=== PATIENT | female | born 1945 | race Caucasian/White ===

== ENCOUNTER 2019-12-16 09:34 | Inpatient (IN) | payer OTHER, MEDICARE ==
[2019-12-16] MEDS ORDERED: ONDANSETRON 4 MG/2 ML VIAL ONE (09:57)
[2019-12-16] MEDS ORDERED: MORPHINE 4 MG/ML SYR ONE ×4 (09:57→16:48)
[2019-12-16 10:20] LABS: Absolute Lymphocytes (CBC) 0.9 K/uL (0.7-4.9); Basophils % 1.1 % (0-1.3); Hematocrit 40.6 % (36.0-45.0); Lymphocytes % 13.6 % (15.3-44.8); MPV 8.1 fL (7.6-11.3); RBC Red Blood Cell Count 4.19 M/uL (3.86-4.86)
[2019-12-16 10:21] LABS: Protime INR 1.85
[2019-12-16 10:31] LABS: ALT/SGPT 22 U/L (12-78); AST/SGOT 19 U/L (15-37); Albumin 3.4 g/dL (3.4-5.0); Alkaline Phosphatase 59 U/L (45-117); BUN Blood Urea Nitrogen 22 mg/dL (7-18); Bicarbonate 26 mmol/L (21-32); Bilirubin Direct 0.2 mg/dL (0-0.2); Bilirubin Total 0.4 mg/dL (0.2-1.0); Glucose Level 135 mg/dL (74-106); NT PRO-BNP 453 pg/mL (<125); Potassium 4.1 mmol/L (3.5-5.1); Protein, Total 6.7 g/dL (6.4-8.2); Sodium Level 144 mmol/L (136-145); Troponin (Emerg Dept Use Only) < 0.02 ng/mL (0.0-0.045)
--- NOTE | 2019-12-16 10:43 | RAD REPORT ---
EXAM DESCRIPTION: CT - Head C Spine Mpr Wo Con - 12/16/2019 10:20 am CLINICAL HISTORY: Head and neck injury status post fall. Head and neck pain COMPARISON: None. TECHNIQUE: Computed axial tomography of the head and cervical spine was obtained. Sagittal and coronal reconstruction was performed. All CT scans are performed using dose optimization technique as appropriate and may include automated exposure control or mA/KV adjustment according to patient size. FINDINGS: An intracranial bleed is not seen. Mild low-density areas within periventricular, deep and subcortical white matter likely ischemic arnold ges secondary to small vessel disease The ventricles are normal in caliber. An extra-axial fluid collection is not noted.Fluid within the v isualized sinuses and mastoids is not seen A cervical fracture is not visualized. No dislocation is noted. IMPRESSION: No acute intracranial abnormality is seen. A cervical fracture is not visualized. If the patient continues to have symptoms to suggest intracra nial /spinal cord pathology then MRI would be recommended
--- NOTE | 2019-12-16 10:52 | RAD REPORT ---
EXAM DESCRIPTION: Rian Car Left12/16/2019 10:43 am CLINICAL HISTORY: Left leg pain status post injury FINDINGS: Comminuted markedly displaced fractures involve of the proximal left fibula and proximal t o mid tibia with some angulation present at fracture site Lucency within the lateral tibial plateau is equivocal for an additional fracture
--- NOTE | 2019-12-16 11:18 | ER ---
Nurse's Notes [facility] Name: Catina Albright Age: 74 yrs Sex: Female : 1945 Arrival Date: 12/16/2019 Time: 09:37 Bed 4 Private MD: Diagnosis: Fall due to bumping against object;Displaced comminuted fracture of shaft of left tibia;Comminuted fracture of shaft of fibula;Atrial fibrillation and flutter;Displaced fracture of lateral condyle of left tibia-plateau Presentation: 12/15 09:38 Chief complaint: EMS states: Pt slipped and fell in shower, denies hitting head or LOC, ph does take blood thinners, obvious deformity to L lower leg. Coronavirus screen: Patient denies a cough. Patient denies shortness of breath or difficulty breathing. Patient denies measured and/or subjective temperature greater than 100.4F prior to today's visit. Patient denies travel on a cruise ship or to a country the [facility] currently lists as an affected area. Patient denies contact with known and/or suspected case of COVID-19. Proceed with normal triage. Ebola Screen: No symptoms or risks identified at this time. Initial Sepsis Screen: Does the patient meet any 2 criteria? No. Patient's initial sepsis screen is negative. Does the patient have a suspected source of infection? No. Patient's initial sepsis screen is negative. Risk Assessment: Do you want to hurt yourself or someone else? Patient reports no desire to harm self or others. Onset of symptoms was December 16, 2019. 09:38 Method Of Arrival: EMS: [facility] ph 09:38 Acuity: MADHAV 3 ph Historical: - Allergies: 09:41 codeine sulfate; ph 09:41 Dilaudid; ph 09:41 ambien; ph - Home Meds: 09:41 Eliquis oral oral [Active]; ph - PMHx: 09:43 Atrial Fib; em - PSHx: 09:43 Cholecystectomy; Appendectomy; Tonsillectomy; Hysterectomy; R hip surgery; em - Immunization history:: Adult Immunizations unknown, Adult Immunizations up to date. - Social history:: Smoking status: Patient denies any tobacco usage or history of. Smoking status: Patient denies any tobacco usage or history of. - Immunization history: Last tetanus immunization: - up to date. - Family history:: not pertinent. Screenin:40 Abuse screen: Denies threats or abuse. Denies injuries from another. Nutritional ph screening: No deficits noted. Tuberculosis screening: No symptoms or risk factors identified. Fall Risk None identified. Primary Survey: 09:42 NO uncontrolled hemorrhage observed. A: The patient is alert. Airway: patent, No ph supplemental oxygen in use on arrival. Oral cavity: clear, Trachea midline. Breathing/Chest: Respiratory pattern: regular, Respiratory effort: spontaneous, unlabored, Chest inspection: symmetrical rise and fall of the chest. Circulation: Skin color: pink, Skin temperature: warm, dry. Disability Alert. Exposure/Environment: There is no evidence of uncontrolled external bleeding. Obvious injury(ies) are noted at this time: obvious deformity to left lower leg A warming method has been applied: A warm blanket has been provided to the patient. Assessment: 09:38 General: Appears in no apparent distress. comfortable, Behavior is calm, cooperative, em appropriate for age, Denies fever. Pain: Complains of pain in left leg and left marina Pain currently is 4 out of 10 on a pain scale. Neuro: Level of Consciousness is awake, alert, obeys commands, Oriented to person, place, time, situation, Appropriate for age. Cardiovascular: Capillary refill < 3 seconds Patient's skin is warm and dry. Pulses are all present. Respiratory: Airway is patent Respiratory effort is even, unlabored, Respiratory pattern is regular, symmetrical. GI: Abdomen is flat. Derm: Skin is intact, is healthy with good turgor, Skin is pink, warm \T\ dry. Musculoskeletal: Capillary refill < 3 seconds, Bony deformity noted of left marina Swelling present in left marina. 09:45 Reassessment: Dr. Fox at bedside, cleared pt off backboard, no c-collar applied at em this time. 10:30 Reassessment: Patient appears in no apparent distress at this time. Patient and/or em family updated on plan of care and expected duration. Pain level reassessed. Patient is alert, oriented x 3, equal unlabored respirations, skin warm/dry/pink. 11:45 Reassessment: Patient appears in no apparent distress at this time. Patient and/or em family updated on plan of care and expected duration. Pain level reassessed. Patient is alert, oriented x 3, equal unlabored respirations, skin warm/dry/pink. request more pain medication, Dr. Fox notified. 16:30 Reassessment: Patient appears in no apparent distress at this time. Patient and/or em family updated on plan of care and expected duration. Pain level reassessed. Patient is alert, oriented x 3, equal unlabored respirations, skin warm/dry/pink. Vital Signs: 09:38 BP 150 / 91; Pulse 76; Resp 18; Pulse Ox 98% on R/A; Weight 86.18 kg; Height 6 ft. 0 ph in. (182.88 cm); Pain 4/10; 09:38 Temp 97.6; em 10:30 BP 139 / 60; Pulse 69; Resp 18; Pulse Ox 99% on R/A; em 11:30 BP 143 / 74; Pulse 70; Resp 16; Pulse Ox 99% on R/A; em 12:30 BP 135 / 58; Pulse 67; Resp 18; Pulse Ox 99% on R/A; em 13:30 BP 145 / 72; Pulse 62; Resp 16; Pulse Ox 95% on R/A; em 14:30 BP 121 / 61; Pulse 58; Resp 20; Pulse Ox 100% on R/A; em 15:30 BP 147 / 66; Pulse 56; Resp 18; Pulse Ox 99% on R/A; em 16:49 BP 138 / 65; Pulse 60; Resp 16; Pulse Ox 95% on R/A; em 17:00 BP 107 / 59; Pulse 70; Resp 16; Pulse Ox 97% on R/A; em 09:38 Body Mass Index 25.77 (86.18 kg, 182.88 cm) ph [place] Coma Score: 09:38 Eye Response: spontaneous(4). Verbal Response: oriented(5). Motor Response: obeys em commands(6). Total: 15. Trauma Score (Adult): 09:38 Eye Response: spontaneous(1); Verbal Response: oriented(1); Motor Response: obeys em commands(2); Systolic BP: > 89 mm Hg(4); Respiratory Rate: 10 to 29 per min(4); Sly Score: 15; Trauma Score: 12 ED Course: 09:37 Patient arrived in ED. ph 09:38 Best Fox MD is Attending Physician. ashlee 09:38 Patient maintains SpO2 saturation greater than 95% on room air. Thermoregulation: warm em blanket given to patient. 09:40 Triage completed. ph 09:40 Casey Soriano, RN is Primary Nurse. em 09:41 Arm band placed on. ph 09:44 Patient has correct armband on for positive identification. Bed in low position. Call em light in reach. Side rails up X2. Adult w/ patient. visual merchandising director on. Pulse ox on. NIBP on. 10:00 Initial lab(s) drawn, by me, sent to lab. Inserted saline lock: 22 gauge in right em forearm, using aseptic technique. Blood collected. 10:20 CT Head C Spine In Process Unspecified. EDMS 10:20 CT completed. Patient tolerated procedure well. Patient moved back from CT. Patient bq moved to radiology. 10:43 XRAY Chest (1 view) In Process Unspecified. EDMS 10:43 Pelvis XRAY In Process Unspecified. EDMS 10:43 Tib Fib Left XRAY In Process Unspecified. EDMS 11:15 Rafael Calix MD is Hospitalizing Provider. ashlee 12:51 Knee Left Wo Con In Process Unspecified. EDMS 12:52 CT completed. Patient tolerated procedure well. Radiology exam delayed due to pts leg bq to be splinted before going to ct. per dr genao. Patient moved back from CT. 16:47 No provider procedures requiring assistance completed. Patient admitted, IV remains in em place. Administered Medications: 10:02 Drug: Zofran (Ondansetron) 4 mg Route: IVP; Site: right forearm; em 10:55 Follow up: Response: No adverse reaction em 10:04 Drug: morphine 4 mg Route: IVP; Site: right forearm; em 10:55 Follow up: Response: No adverse reaction em 10:58 Drug: morphine 4 mg Route: IVP; Site: right forearm; em 11:15 Follow up: Response: No adverse reaction; Marked relief of symptoms; Pain is decreased em 14:40 Drug: morphine 4 mg Route: IVP; Site: right antecubital; ph 15:00 Follow up: Response: No adverse reaction; Pain is decreased; RASS: Alert and Calm (0) em 16:44 Drug: morphine 4 mg Route: IVP; Site: right forearm; em 17:00 Follow up: Response: No adverse reaction; Marked relief of symptoms; Pain is decreased em Output: 16:49 Urine: 0ml; Total: 0ml. em Outcome: 11:17 Decision to Hospitalize by Provider. ashlee 16:47 Admitted to Med/surg family with patient, via stretcher, room 231, Report called to judy Michel RN 16:47 Condition: stable 16:47 Instructed on the need for admit, Demonstrated understanding of instructions. 17:09 Patient left the ED. em 17:09 Patient's length of stay was extended due to staffing issues within the emergency em department. Signatures: Dispatcher [employer] Best Castro MD MD cha Quilty, Betty bq Munoz, Edgar, RN RN Jillian Thibodeaux RN RN ph Corrections: (The following items were deleted from the chart) 09:43 Allergies: ambien; em em 16 09:43 Allergies: Dilaudid; em em :16 09:43 Allergies: Codeine; em em
--- NOTE | 2019-12-16 11:18 | EDPHYS ---
Physician Documentation [facility] Name: Catina Albright Age: 74 yrs Sex: Female : 1945 Arrival Date: 12/16/2019 Time: 09:37 Bed 4 Private MD: ED Physician Best Fox HPI: 12/15 09:42 This 74 yrs old Female presents to ER via EMS with complaints of Fall Injury, ashlee Leg Injury. 09:42 Details of fall: The patient fell from an upright position, while standing. Onset: The ashlee symptoms/episode began/occurred just prior to arrival. Associated injuries: The patient sustained left marina, decreased range of motion, obvious fracture, painful injury. Severity of symptoms: At their worst the symptoms were moderate, in the emergency department the symptoms are unchanged. The patient has not experienced similar symptoms in the past. Historical: - Allergies: 09:41 codeine sulfate; ph 09:41 Dilaudid; ph 09:41 ambien; ph - Home Meds: 09:41 Eliquis oral oral [Active]; ph - PMHx: 09:43 Atrial Fib; em - PSHx: 09:43 Cholecystectomy; Appendectomy; Tonsillectomy; Hysterectomy; R hip surgery; em - Immunization history:: Adult Immunizations unknown, Adult Immunizations up to date. - Social history:: Smoking status: Patient denies any tobacco usage or history of. Smoking status: Patient denies any tobacco usage or history of. - Immunization history: Last tetanus immunization: - up to date. - Family history:: not pertinent. ROS: 09:42 Constitutional: Negative for fever, chills, and weight loss, Eyes: Negative for injury, ashlee pain, redness, and discharge, ENT: Negative for injury, pain, and discharge, Cardiovascular: Negative for chest pain, palpitations, and edema, Respiratory: Negative for shortness of breath, cough, wheezing, and pleuritic chest pain, Abdomen/GI: Negative for abdominal pain, nausea, vomiting, diarrhea, and constipation, Back: Negative for injury and pain, : Negative for injury, bleeding, discharge, and swelling, Skin: Negative for injury, rash, and discoloration, Neuro: Negative for headache, weakness, numbness, tingling, and seizure, Psych: Negative for depression, anxiety, suicide ideation, homicidal ideation, and hallucinations, Allergy/Immunology: Negative for hives, rash, and allergies, Endocrine: Negative for neck swelling, polydipsia, polyuria, polyphagia, and marked weight changes, Hematologic/Lymphatic: Negative for swollen nodes, abnormal bleeding, and unusual bruising. 09:42 Neck: Positive for pain with movement. 09:42 Cardiovascular: 09:42 MS/extremity: Positive for injury or acute deformity, decreased range of motion, pain, swelling, of the left marina. Exam: 09:42 Constitutional: This is a well developed, well nourished patient who is awake, alert, ashlee and in no acute distress. Head/Face: Normocephalic, atraumatic. Eyes: Pupils equal round and reactive to light, extra-ocular motions intact. Lids and lashes normal. Conjunctiva and sclera are non-icteric and not injected. Cornea within normal limits. Periorbital areas with no swelling, redness, or edema. ENT: Nares patent. No nasal discharge, no septal abnormalities noted. Tympanic membranes are normal and external auditory canals are clear. Oropharynx with no redness, swelling, or masses, exudates, or evidence of obstruction, uvula midline. Mucous membranes moist. Chest/axilla: Normal chest wall appearance and motion. Nontender with no deformity. No lesions are appreciated. Cardiovascular: Regular rate and rhythm with a normal S1 and S2. No gallops, murmurs, or rubs. Normal PMI, no JVD. No pulse deficits. Respiratory: Lungs have equal breath sounds bilaterally, clear to auscultation and percussion. No rales, rhonchi or wheezes noted. No increased work of breathing, no retractions or nasal flaring. Abdomen/GI: Soft, non-tender, with normal bowel sounds. No distension or tympany. No guarding or rebound. No evidence of tenderness throughout. Female : Normal external genitalia. Skin: Warm, dry with normal turgor. Normal color with no rashes, no lesions, and no evidence of cellulitis. Neuro: Awake and alert, GCS 15, oriented to person, place, time, and situation. Cranial nerves II-XII grossly intact. Motor strength 5/5 in all extremities. Sensory grossly intact. Cerebellar exam normal. Normal gait. Psych: Awake, alert, with orientation to person, place and time. Behavior, mood, and affect are within normal limits. 09:42 Neck: External neck: is normal, C-spine: Back board [employer] Thyroid: appears normal, no acute changes, Trachea: is midline with no obvious abnormalities, no acute changes, ROM/movement: pain. 11:30 ECG was reviewed by the Attending Physician. [facility] Vital Signs: 09:38 BP 150 / 91; Pulse 76; Resp 18; Pulse Ox 98% on R/A; Weight 86.18 kg; Height 6 ft. 0 ph in. (182.88 cm); Pain 4/10; 09:38 Temp 97.6; em 10:30 BP 139 / 60; Pulse 69; Resp 18; Pulse Ox 99% on R/A; em 11:30 BP 143 / 74; Pulse 70; Resp 16; Pulse Ox 99% on R/A; em 12:30 BP 135 / 58; Pulse 67; Resp 18; Pulse Ox 99% on R/A; em 13:30 BP 145 / 72; Pulse 62; Resp 16; Pulse Ox 95% on R/A; em 14:30 BP 121 / 61; Pulse 58; Resp 20; Pulse Ox 100% on R/A; em 15:30 BP 147 / 66; Pulse 56; Resp 18; Pulse Ox 99% on R/A; em 16:49 BP 138 / 65; Pulse 60; Resp 16; Pulse Ox 95% on R/A; em 17:00 BP 107 / 59; Pulse 70; Resp 16; Pulse Ox 97% on R/A; em 09:38 Body Mass Index 25.77 (86.18 kg, 182.88 cm) ph [place] Coma Score: 09:38 Eye Response: spontaneous(4). Verbal Response: oriented(5). Motor Response: obeys em commands(6). Total: 15. Trauma Score (Adult): 09:38 Eye Response: spontaneous(1); Verbal Response: oriented(1); Motor Response: obeys em commands(2); Systolic BP: > 89 mm Hg(4); Respiratory Rate: 10 to 29 per min(4); [place] Score: 15; Trauma Score: 12 Procedures: 09:42 Splinting: Splint applied to left leg and left marina using Orthoglass splint, applied by [facility] myself. nurse. MDM: 09:38 Patient medically screened. [facility] 09:46 Differential diagnosis: closed head injury, fracture, multiple trauma, sprain, strain. [facility] Data reviewed: vital signs, nurses notes, lab test result(s), EKG, radiologic studies, CT scan, plain films. Data interpreted: ekg monitor tech: rate is 76 beats/min, rhythm is irregularly irregular, Pulse oximetry: on room air is 98 %. Test interpretation: by ED physician or midlevel provider: ECG, plain radiologic studies. Counseling: I had a detailed discussion with the patient and/or guardian regarding: the historical points, exam findings, and any diagnostic results supporting the discharge/admit diagnosis, the presence of at least one elevated blood pressure reading (>120/80) during this emergency department visit, lab results, radiology results, the need for further work-up and treatment in the hospital. 12/15 09:42 Order name: Basic Metabolic Panel [facility] 12/15 09:42 Order name: CBC with Diff [facility] 12/15 09:42 Order name: LFT's [facility] 12/15 09:42 Order name: Magnesium [facility] 12/15 09:42 Order name: NT PRO-BNP [facility] 12/15 09:42 Order name: PT-INR [facility] 12/15 09:42 Order name: Troponin (emerg Dept Use Only) [facility] 12/15 13:15 Order name: Urinalysis [facility] 12/15 13:15 Order name: CBC with Automated Diff [facility] 12/15 13:15 Order name: CBC with Automated Diff [facility] 12/15 13:15 Order name: Comprehensive Metabolic Panel [facility] 12/15 13:15 Order name: Comprehensive Metabolic Panel [facility] 12/15 13:15 Order name: Magnesium [facility] 12/15 13:15 Order name: Magnesium [facility] 12/15 09:42 Order name: XRAY Chest (1 view) [facility] 12/15 09:42 Order name: EKG; Complete Time: 09:43 [facility] 12/15 09:42 Order name: Cardiac monitoring; Complete Time: 09:45 [facility] 12/15 09:42 Order name: Pelvis XRAY [facility] 12/15 09:42 Order name: Tib Fib Left XRAY [facility] 12/15 09:42 Order name: CT Head C Spine [facility] 12/15 11:16 Order name: Knee Left Wo Con [facility] 12/15 13:15 Order name: Heart Healthy [facility] 12/15 13:15 Order name: Phosphorus [facility] 12/15 13:15 Order name: Phosphorus EDMS 12/15 09:42 Order name: EKG - Nurse/Tech; Complete Time: 11:40 [facility] 12/15 09:42 Order name: IV Saline Lock; Complete Time: 10:12 [facility] 12/15 09:42 Order name: Labs collected and sent; Complete Time: 10:12 [facility] 12/15 09:42 Order name: O2 Per Protocol; Complete Time: 09:44 [facility] 12/15 09:42 Order name: O2 Sat Monitoring; Complete Time: 09:44 [facility] 12/15 09:42 Order name: Splint - Long Leg: Posterior w/ Stirrup; Complete Time: 12:29 [facility] 12/15 09:42 Order name: Ice pack; Complete Time: 12:29 [facility] EC:30 Rate is 70 beats/min. Rhythm is regular. QRS [place] is Normal. QT interval is prolonged ashlee at 486 msec. No Q waves. T waves are Normal. No ST changes noted. Clinical impression: No evidence of ischemia. Interpreted by me. Reviewed by me. Administered Medications: 10:02 Drug: Zofran (Ondansetron) 4 mg Route: IVP; Site: right forearm; em 10:55 Follow up: Response: No adverse reaction em 10:04 Drug: morphine 4 mg Route: IVP; Site: right forearm; em 10:55 Follow up: Response: No adverse reaction em 10:58 Drug: morphine 4 mg Route: IVP; Site: right forearm; em 11:15 Follow up: Response: No adverse reaction; Marked relief of symptoms; Pain is decreased em 14:40 Drug: morphine 4 mg Route: IVP; Site: right antecubital; ph 15:00 Follow up: Response: No adverse reaction; Pain is decreased; RASS: Alert and Calm (0) em 16:44 Drug: morphine 4 mg Route: IVP; Site: right forearm; em 17:00 Follow up: Response: No adverse reaction; Marked relief of symptoms; Pain is decreased em Disposition: 12/16/19 11:17 Hospitalization ordered by Rafael Calix for Inpatient Admission. Preliminary diagnosis are Fall due to bumping against object, Displaced comminuted fracture of shaft of left tibia, Comminuted fracture of shaft of fibula, Atrial fibrillation and flutter, Displaced fracture of lateral condyle of left tibia - plateau. - Bed requested for Telemetry/MedSurg (Inpatient). - Status is Inpatient Admission. em - Condition is Stable. - Problem is new. - Symptoms have improved. Signatures: Dispatcher [employer] EDDC Cheyenne Lovell RN RN Best Fox MD MD cha Munoz, Edgar, RN RN em Jillian Avendaño RN RN ph Corrections: (The following items were deleted from the chart) 10:16 09:43 Allergies: ambien; em em 10:16 09:43 Allergies: Dilaudid; em em 10:16 09:43 Allergies: Codeine; em em 11:16 11:02 CT LEFT KNEE WO CONTRAST ordered. EDDC EDDC 13:26 11:17 Hospitalization Ordered by Rafael Calix MD for Inpatient Admission. Preliminary ashlee diagnosis is Fall due to bumping against object; Displaced comminuted fracture of shaft of left tibia; Comminuted fracture of shaft of fibula; Atrial fibrillation and flutter. Bed requested for Telemetry/MedSurg (Inpatient). Status is Inpatient Admission. Condition is Stable. Problem is new. Symptoms have improved. [facility] 15:11 13:26 12/16/2019 11:17 Hospitalization Ordered by Rafael Calix MD for Inpatient dw Admission. Preliminary diagnosis is Fall due to bumping against object; Displaced comminuted fracture of shaft of left tibia; Comminuted fracture of shaft of fibula; Atrial fibrillation and flutter; Displaced fracture of lateral condyle of left tibia - plateau. Bed requested for Telemetry/MedSurg (Inpatient). Status is Inpatient Admission. Condition is Stable. Problem is new. Symptoms have improved. [facility] 17:09 15:11 12/16/2019 11:17 Hospitalization Ordered by Rafael Calix MD for Inpatient em Admission. Preliminary diagnosis is Fall due to bumping against object; Displaced comminuted fracture of shaft of left tibia; Comminuted fracture of shaft of fibula; Atrial fibrillation and flutter; Displaced fracture of lateral condyle of left tibia - plateau. Bed requested for Telemetry/MedSurg (Inpatient). Status is Inpatient Admission. Condition is Stable. Problem is new. Symptoms have improved. dw
--- NOTE | 2019-12-16 12:36 | CON ---
Date of Consultation: 12/16/2019 This is my first time seeing this patient to my knowledge. She is a 74-year-old female, who unfortun ately injured her left lower extremity. She has been seen and examined in the emergency department a nd x-rays were taken, which revealed an obvious displaced fracture near the midshaft of the left tibi a as well as an associated fibular fracture. The tibia fracture does appear to have a small butterfl y. On closer examination of her x-rays, does appear to have some abnormality related to the lateral tibial plafond. On questioning, the patient says she really does not remember ever injuring this are a. This could be simple degenerative changes, and without current trauma now, it is very difficult t o assess her knee because of distracting injury of her tibia, so we will place her in a splint and se nd a CT scan. I believe this most likely is not a fracture, however, could be a compression fracture of the tibia. Otherwise, she is taking Xarelto and does have a history of atrial fibrillation. Mos t likely, she will be admitted to the hospitalist. We will hold her Xarelto today and tomorrow. We will most likely move forward with closed versus open reduction with intramedullary olvin fixation. Th ere is a possibility that the tibial plateau could be fractured, however, is still probably treated w ith the olvin with perhaps some supporting screws and nonweightbearing, but we will have to see the CT scan to assess it and confirm it. This may change our operative plan. This has been discussed with the patient. She states she understands things as presented. /DARRIAN Voice ID: [id number] Report ID: [id number]
--- NOTE | 2019-12-16 12:40 | RAD REPORT ---
EXAM DESCRIPTION: RAD - Pelvis - 12/16/2019 10:43 am CLINICAL HISTORY: Pelvic pain status post injury FINDINGS: No fracture or dislocation is seen. Osteoporosis. Compression screw has been placed into the right femur
--- NOTE | 2019-12-16 12:41 | RAD REPORT ---
EXAM DESCRIPTION: Tamiko Single View12/16/2019 10:43 am CLINICAL HISTORY: Chest pain COMPARISON: 2018 FINDINGS: The lungs appear clear of acute infiltrate. The heart is mildly enlarged. Pacemaker leads are in place. IMPRESSION: No acute abnormalities displayed
[2019-12-16] MEDS ORDERED: ONDANSETRON 4 MG/2 ML VIAL IV PRN (13:09)
[2019-12-16] MEDS ORDERED: ACETAMINOPHEN 500 MG TAB PO PRN (13:09)
--- NOTE | 2019-12-16 13:14 | RAD REPORT ---
EXAM DESCRIPTION: CT - Knee Left Wo Joel - 12/16/2019 12:51 pm CLINICAL HISTORY: Left knee pain and swelling status post fall COMPARISON: X-ray December 16, 2019 TECHNIQUE: Computed axial tomography left obtained All CT scans are performed using dose optimization technique as appropriate and may include automated exposure control or mA/KV adjustment according to patient size. FINDINGS: An avulsion fracture involves posterior aspect of the lateral tibial plateau. Mild depress ion of the lateral tibial plateau is present. The fracture extends inferiorly within the diaphysis of proximal tibia. Comminuted markedly displaced fracture involves the proximal fibula. Moderate hemarthrosis involves the knee No dislocation IMPRESSION: An avulsion fracture involves posterior aspect of the lateral tibial plateau. Mild depre ssion of the lateral tibial plateau is present. The fracture extends inferiorly involving the diaphys is of proximal tibia. Comminuted markedly displaced fracture proximal fibula
--- NOTE | 2019-12-16 13:22 | P.HP ---
Certification for Inpatient Patient admitted to: Inpatient With expected LOS: >2 Midnights Patient will require the following post-hospital care: Home Health Services Practitioner: I am a practitioner with admitting privileges, knowledge of patient current condition, hospital course, and medical plan of care. Services: Services provided to patient in accordance with Admission requirements found in Title 42 Section 412.3 of the Code of Federal Regulations Patient History Date of Service: 12/16/19 Reason for admission: h/o Fall History of Present Illness: 74-year-old female with past medical history of hypertension, atrial fibrillation, TIA, CHF, status post pacemaker, on Xarelto came to ER with left lower extremity pain after suffering a fall after shower. Patient was seen in the ER and was found to have tibial fractures and was admitted for further management. Ortho was consulted and as she is on Xarelto and was admitted No fever or chills No sick contacts Denies any chest pain or shortness of breath No contacts with COVID 19 patients Allergies codeine Allergy (Verified 12/16/19 11:01) Hives hydromorphone [From Dilaudid] Allergy (Verified 12/16/19 11:01) Hives/Rash zolpidem [From Ambien] Allergy (Verified 12/16/19 11:01) Hives Home medications list reviewed: Yes - Past Medical/Surgical History Past Medical History: Reviewed- Non-Contributory -: HTN -: Afib -: CHF s/p Pacemaker Past Surgical History: Reviewed- Non-Contributory -: Pacemaker - Family History Family History: Reviewed- Non-Contributory - Social History Smoking Status: Never smoker Review of Systems 10-point ROS is otherwise unremarkable Physical Examination - Vital Signs Temperature: 98.3 F Blood Pressure: 136/84 Pulse: 78 Respirations: 18 - Physical Exam General: Alert, In no apparent distress HEENT: Atraumatic, Normocephalic Neck: Supple, 2+ carotid pulse no bruit Respiratory: Clear to auscultation bilaterally, Normal air movement Cardiovascular: Regular rate/rhythm, Normal S1 S2 Capillary refill: <2 Seconds Gastrointestinal: Soft and benign, W/out hepatosplenomegaly Musculoskeletal: Swelling, Tenderness, Other (Left Lower Extremity tenderness ) Integumentary: No rashes Neurological: Other (Alert , Awake ), Abnormal gait Lymphatics: No axilla or inguinal lymphadenopathy Urinary: Other (No bladder distention ) - Studies Laboratory Data (last 24 hrs) 12/16/19 10:00: PT 21.6 H, INR 1.85 12/16/19 10:00: WBC 6.3, Hgb 13.7, Hct 40.6, Plt Count 248 12/16/19 10:00: Sodium 144, Potassium 4.1, BUN 22 H, Creatinine 0.97, Glucose 135 H, Magnesium 2.0, Total Bilirubin 0.4, AST 19, ALT 22, Alkaline Phosphatase 59 Imagings Data: Xray Tibia Comminuted markedly displaced fractures involve of the proximal left fibula and proximal to mid tibia with some angulation present at fracture site Lucency within the lateral tibial plateau is equivocal for an additional fracture Assessment and Plan - Problems (Diagnosis) (1) Tibia/fibula fracture Current Visit: Yes Status: Acute - Plan Communited Proximal fibula and proximal to mid tibial fracture History of fall X-ray shows : Comminuted markedly displaced fractures involve of the proximal left fibula and proximal to mid tibia with some angulation present at fracture site Lucency within the lateral tibial plateau is equivocal for an additional fracture Will get a CT of the lower extremity Pain control Orthopedic consultation Monitor closely Atrial fibrillation Will monitor under telemetry Hold Xarelto for now will get a CBC and BMP Monitor closely History of CHF status post pacemaker Will get an echocardiogram Continue home medications and titrate as needed Hypertension Continue antihypertensives and titrate as needed GI/DVT prophylaxis Advanced directives full code. - Advance Directives Does patient have a Living Will: No Does patient have a Durable POA for Healthcare: No Time Spent Managing Pts Care (In Minutes): 45
[2019-12-16 18:07] VITALS: BMI 27.1
[2019-12-16 22:06] LABS: Urine Appearance CLOUDY; Urine Bilirubin NEGATIVE (NEG); Urine Blood 3+ (NEG); Urine Color YELLOW; Urine Glucose NEGATIVE (NEG); Urine Protein 1+ (NEG); Urine Specific Gravity 1.015 (1.005-1.030); Urine pH 6.5 (5.0-7.0)
[2019-12-16 22:09] LABS: Urine Microscopic Reflex ORDER UMIC
[2019-12-16] MEDS: MORPHINE 2 MG/ML SYR IV PRN (22:41)
[2019-12-16 22:52] LABS: Urine Bacteria >50 /HPF (<20); Urine Culture Reflex Order REFLEXED; Urine RBC 20-50 /HPF (NONE SEEN)
[2019-12-17 06:23] LABS: Basophils % 1.2 % (0-1.3); Hematocrit 35.6 % (36.0-45.0); MPV 8.3 fL (7.6-11.3); RBC Red Blood Cell Count 3.65 M/uL (3.86-4.86)
[2019-12-17 06:46] LABS: Albumin 3.2 g/dL (3.4-5.0); Bilirubin Total 1.2 mg/dL (0.2-1.0); Magnesium 2.1 mg/dL (1.8-2.4); Phosphorus 2.8 mg/dL (2.5-4.9); Protein, Total 6.4 g/dL (6.4-8.2)
--- NOTE | 2019-12-17 08:10 | EKG ---
Test Date: 2019-12-16 Test Time: 11:26:42 Tankroom Worker: LASHANDA MEASUREMENT RESULTS: Intervals: Rate: 70 IN: 172 QRSD: 88 QT: 486 QTc: 524 [place]: P: 49 IN: 172 QRS: 6 T: 41 INTERPRETIVE STATEMENTS: Electronic atrial pacemaker Septal infarct, age undetermined Prolonged QT Abnormal ECG No previous ECG available for comparison Electronically Signed On 12-17-19 08:08:54 CDT by Osei Reyes
[2019-12-17] MEDS: MORPHINE 2 MG/ML SYR IV PRN ×2 (08:28→22:37)
[2019-12-17] MEDS ORDERED: Ringers Lactate 1,000 ML IV ONE ×2 (08:52→11:46)
[2019-12-17] MEDS ORDERED: propofoL 200 MG/20 ML VIAL IV ONE (09:02)
[2019-12-17] MEDS ORDERED: LIDOCAINE 2% MPF 5 ML VIAL ONE (09:02)
[2019-12-17] MEDS ORDERED: FENTANYL CITR 100 MCG/2 ML ONE (09:03)
[2019-12-17] MEDS ORDERED: EPHEDRINE SULF 50 MG/ML VIAL ONE (09:04)
[2019-12-17] MEDS ORDERED: CEFAZOLIN/SWI 1gm 1 GM/10 ML SYR ONE (09:07)
[2019-12-17] MEDS ORDERED: ONDANSETRON 4 MG/2 ML VIAL ONE (09:37)
[2019-12-17] MEDS ORDERED: dexAMETHasone 10 MG/ML VIAL ONE (09:37)
[2019-12-17] MEDS ORDERED: KETOROLAC 30 MG/ML INJ ONE (09:37)
[2019-12-17] MEDS ORDERED: Phenylephrine HCl 10 MG/ML 1 ML VIAL ONE (10:05)
--- NOTE | 2019-12-17 11:21 | P.BOP ---
Preoperative diagnosis: left tibial shaft and plateau fracture, fibula fracture Postoperative diagnosis: same Primary procedure: left tibia roger olvin Estimated blood loss: 20 ccs Anesthesia: General Complications: None Transferred to: Recovery Room Condition: Good
--- NOTE | 2019-12-17 11:31 | P.PN ---
Subjective Date of Service: 12/17/19 Chief Complaint: h/o Fall Subjective: No new changes (Going to OR today) Review of Systems 10-point ROS is otherwise unremarkable Physical Examination - Vital Signs Temperature: 97.6 F Blood Pressure: 158/57 Pulse: 83 Respirations: 18 Pulse Ox (%): 95 - Physical Exam General: Alert, In no apparent distress HEENT: Atraumatic, Normocephalic Neck: Supple Respiratory: Clear to auscultation bilaterally, Normal air movement Cardiovascular: Normal pulses, Regular rate/rhythm Capillary refill: <2 Seconds Gastrointestinal: Soft and benign, W/out hepatosplenomegaly Musculoskeletal: Tenderness Integumentary: No rashes Neurological: Normal speech Lymphatics: No axilla or inguinal lymphadenopathy Assessment & Plan - Problems (Diagnosis) (1) Tibia/fibula fracture Current Visit: Yes Status: Acute Qualifiers: Encounter type: initial encounter Physician Review Additional Text: Communited Proximal fibula and proximal to mid tibial fracture History of fall X-ray shows : Comminuted markedly displaced fractures involve of the proximal left fibula and proximal to mid tibia with some angulation present at fracture site Lucency within the lateral tibial plateau is equivocal for an additional fracture Will get a CT of the lower extremity Pain control Orthopedic consultation Monitor closely Atrial fibrillation Will monitor under telemetry Hold Xarelto for now will get a CBC and BMP Monitor closely History of CHF status post pacemaker Will get an echocardiogram Continue home medications and titrate as needed Hypertension Continue antihypertensives and titrate as needed 12/17/2019 Patient's is getting surgery today discuss with orthopedic Appreciate help from Dr. Powers Advised nonweightbearing on knee immobilizer Pain control Will get a PT eval Possible Dc in a.m. Follow up with in 1 week Time Spent Managing Pts Care (In Minutes): 40
--- NOTE | 2019-12-17 12:40 | RAD REPORT ---
EXAM DESCRIPTION: RAD - Tib Fib Left - 12/17/2019 11:36 am CLINICAL HISTORY: OR [address] BLANCO COMPARISON: Tib Fib Left dated 12/16/2019; Knee Left Wo Con dated 12/16/2019 FINDINGS: Fluoroscopy time 5.1 minutes.
--- NOTE | 2019-12-17 21:28 | OP ---
Date of Procedure: 12/17/2019 Surgeon: Kip Santiago MD Preoperative Diagnoses: Left open tibia fracture, left fibular fracture, and left tibial plateau fra cture. Postoperative Diagnoses: Left open tibia fracture, left fibular fracture, and left tibial plateau fr acture. Procedure: Left tibia closed reduction with intramedullary olvin fixation using the Biomet nail. Estimated Blood Loss: 20 cc. Complications: There were no complications. Specimens: No pathology specimen sent. Indications For Operation: Ms. Albright is a 74-year-old female who unfortunately fell injuring he r left lower extremity. She was seen and examined by me, as well as ER and was found to have injury to her left lower extremity. The tibia and fibular fractures were easily seen; however, it did appea r that she had a what appeared to be a probable depressed lateral tibial plateau fracture; however, o n examination, she denied much knee pain, although she did have a distracting injury, but there was n ot a significant effusion to the knee, which led me to believe most likely this was consistent with o ld change. However, CT scan was done, which demonstrated a probable acute fracture of the posterior lateral tibial plateau. This is somewhat depressed; however, the anterior portion appears to be out to length and it appears to be a pure depression. Decision was made to proceed with fixation of the tibia based on the patient's age. Hopefully, she will not have difficulties related to the tibial pl ateau, but we will treat this nonweightbearing for some time. All risks, benefits, and alternatives of the procedure have been discussed with the patient and she understands things. Description Of Procedure: The patient was taken to the operating room and placed in supine position. General anesthesia was obtained by staff. Following this, a well-padded tourniquet was placed on s uperior left leg. I held the foot while it was being prepped and draped in the usual sterile fashion . Following this, it was placed on a triangle and C-arm was brought in to ensure good views. After this, a standard medial parapatellar incision was made, taken down carefully through skin only. The medial aspect of the patellar tendon was encountered. A finger was placed for appropriate positionin g of the entry portal. The entry portal was checked under biplanar C-arm radiography and established . Guide olvin was then placed across the fracture site without much difficulty. It should be noted he r bone was extremely soft. The tibia was then reamed. It appeared that the bend of the end of the t ibial guide olvin did leave this off slightly. Therefore, the tibial guide olvin was exchanged for a new guide olvin and it was then reamed up to a size 11.5 where there was some significant chatter. It was then measured and the nail was placed without difficulty. It was in a very slight amount of valgus; however, did appear to be out to length. Lateral was ideal. It was checked visually for rotation a nd the final 2 distal screws were placed. The wound was then irrigated. The incision was then close d using combination of Vicryl followed by theo. The patient was then placed in Aquacel dressings as well as a knee immobilizer and knee extension, taken to recovery room in good condition. There we re no complications. /MODL Voice ID: [id number] Report ID: [id number]
[2019-12-17] MEDS ORDERED: ONDANSETRON 4 MG (ODT) TAB PO PRN (21:58)
[2019-12-18] MEDS ORDERED: CEFAZOLIN/NS 1gm 1 GM/50 ML BAG IVPB SCH (03:00)
[2019-12-18] MEDS: CEFAZOLIN/NS 1gm 1 GM/50 ML BAG IVPB SCH ×2 (03:00→09:46)
[2019-12-18] MEDS ORDERED: CEFAZOLIN/SWI 1gm 1 GM/10 ML SYR ONE (03:12)
[2019-12-18] MEDS: LEVOTHYROXINE SOD 0.075 MG TAB PO SCH (09:00)
[2019-12-18] MEDS: [UNRECOGNIZED DRUG - OTHER] PO SCH ×2 (09:00→21:00)
[2019-12-18] MEDS: HOME MED 1 EA UNK (Fenofibrate,Micronized [Fenofibrate] 134 MG) PO SCH (09:00)
[2019-12-18] MEDS: HOME MED 1 EA UNK (Folic Acid [Folic Acid] 0.8 MG) PO SCH (09:00)
[2019-12-18] MEDS: RIVAROXABAN 20 MG TABLET PO SCH ×2 (09:00→21:00)
[2019-12-18] MEDS: HOME MED 1 EA UNK (Mirabegron [Myrbetriq] 1 TAB) PO SCH (09:00)
[2019-12-18] MEDS ORDERED: DULOXETINE 20 MG CAP PO SCH (09:00)
[2019-12-18] MEDS: DOFETILIDE 500 MCG PO SCH ×2 (09:00→21:00)
[2019-12-18] MEDS: DULOXETINE 30 MG CAP PO SCH (09:00)
[2019-12-18] MEDS: POTASSIUM CL SA 10 MEQ TAB PO SCH (09:00)
[2019-12-18] MEDS: BISOPROLOL 5 MG TABLET PO SCH ×2 (09:00→21:00)
--- NOTE | 2019-12-18 11:43 | P.PN ---
Subjective Date of Service: 12/18/19 Chief Complaint: h/o Fall Subjective: No new changes, No C/O voiced Review of Systems 10-point ROS is otherwise unremarkable Physical Examination - Vital Signs Temperature: 97.2 F Blood Pressure: 127/56 Pulse: 90 Respirations: 17 Pulse Ox (%): 97 - Physical Exam General: Alert, In no apparent distress HEENT: Atraumatic, Normocephalic Neck: Supple, 2+ carotid pulse no bruit Respiratory: Clear to auscultation bilaterally, Normal air movement Cardiovascular: No edema, Regular rate/rhythm Capillary refill: <2 Seconds Gastrointestinal: Soft and benign, W/out hepatosplenomegaly Musculoskeletal: No clubbing, No swelling, Tenderness, Other (Dressing Intact) Integumentary: No rashes Neurological: Normal speech, Normal strength at 5/5 x4 extr Lymphatics: No axilla or inguinal lymphadenopathy Assessment & Plan - Problems (Diagnosis) (1) Tibia/fibula fracture Current Visit: Yes Status: Acute Qualifiers: Encounter type: initial encounter Physician Review Additional Text: Communited Proximal fibula and proximal to mid tibial fracture History of fall X-ray shows : Comminuted markedly displaced fractures involve of the proximal left fibula and proximal to mid tibia with some angulation present at fracture site Lucency within the lateral tibial plateau is equivocal for an additional fracture Will get a CT of the lower extremity Pain control Orthopedic consultation Monitor closely Atrial fibrillation Will monitor under telemetry Hold Xarelto for now will get a CBC and BMP Monitor closely History of CHF status post pacemaker Will get an echocardiogram Continue home medications and titrate as needed Hypertension Continue antihypertensives and titrate as needed 12/17/2019 Patient's is getting surgery today discuss with orthopedic Appreciate help from Dr. Powers Advised nonweightbearing on knee immobilizer Pain control Will get a PT eval Possible Dc in a.m. Follow up with in 1 week 12/18/2019 Pain controlled well participating in physical therapy Physical therapy recommendation is to go for rehab Appreciate help from orthopedics Case management consulted Time Spent Managing Pts Care (In Minutes): 45
[2019-12-19 07:53] VITALS: O2SAT 96
[2019-12-19] MEDS: POTASSIUM CL SA 10 MEQ TAB PO SCH (07:55)
[2019-12-19] MEDS: HOME MED 1 EA UNK (Folic Acid [Folic Acid] 0.8 MG) PO SCH (07:55)
[2019-12-19] MEDS: HOME MED 1 EA UNK (Fenofibrate,Micronized [Fenofibrate] 134 MG) PO SCH (07:55)
[2019-12-19] MEDS: DULOXETINE 30 MG CAP PO SCH (07:55)
[2019-12-19] MEDS: DOFETILIDE 500 MCG PO SCH (07:55)
[2019-12-19] MEDS: LEVOTHYROXINE SOD 0.075 MG TAB PO SCH (07:56)
[2019-12-19] MEDS: HOME MED 1 EA UNK (Mirabegron [Myrbetriq] 1 TAB) PO SCH (07:56)
[2019-12-19] MEDS: RIVAROXABAN 20 MG TABLET PO SCH (07:57)
[2019-12-19] MEDS: [UNRECOGNIZED DRUG - OTHER] PO SCH (07:57)
[2019-12-19] MEDS: BISOPROLOL 5 MG TABLET PO SCH (07:57)
[2019-12-19 11:04] VITALS: BP 132/60; TEMP 97.1
--- NOTE | 2019-12-19 11:25 | P.DS ---
Admission Date: 12/16/19 Discharge Date: 12/19/19 Disposition: ROUTINE DISCHARGE Discharge Condition: GOOD Reason for Admission: h/o Fall - Problems (1) Tibia/fibula fracture Status: Acute Qualifiers: Encounter type: initial encounter Brief History of Present Illness: 74-year-old female with past medical history of hypertension, atrial fibrillatio n, TIA, CHF, status post pacemaker, on Xarelto came to ER with left lower extremity pain after suffering a fall after shower. Patient was seen in the ER and was found to have tibial fractures and was admitted for further management. Ortho was consulted and as she is on Xarelto and was admitted No fever or chills No sick contacts Denies any chest pain or shortness of breath No contacts with COVID 19 patients Hospital Course: Communited Proximal fibula and proximal to mid tibial fracture History of fall X-ray shows : Comminuted markedly displaced fractures involve of the proximal left fibula and proximal to mid tibia with some angulation present at fracture site Lucency within the lateral tibial plateau is equivocal for an additional fracture Will get a CT of the lower extremity Pain control Orthopedic consultation Monitor closely Atrial fibrillation Will monitor under telemetry Hold Xarelto for now will get a CBC and BMP Monitor closely History of CHF status post pacemaker Will get an echocardiogram Continue home medications and titrate as needed Hypertension Continue antihypertensives and titrate as needed 12/17/2019 Patient's is getting surgery today discuss with orthopedic Appreciate help from Dr. Powers Advised nonweightbearing on knee immobilizer Pain control Will get a PT eval Possible Dc in a.m. Follow up with in 1 week 12/18/2019 Pain controlled well participating in physical therapy Physical therapy recommendation is to go for rehab Appreciate help from orthopedics Case management consulted The patient is being discharged to a rehab in [place] ( as requested by the patient ) and the patient to follow up with today Vital Signs/Physical Exam: Temp Pulse Resp BP Pulse Ox 97.1 F 68 16 132/60 96 12/19/19 08:00 12/19/19 08:00 12/19/19 08:00 12/19/19 08:00 12/19/19 08:00 General: Alert, In no apparent distress HEENT: Atraumatic, Normocephalic Neck: Supple, JVD not distended Respiratory: Clear to auscultation bilaterally, Normal air movement Cardiovascular: Normal pulses, Regular rate/rhythm Capillary refill: <2 Seconds Gastrointestinal: Soft and benign, W/out hepatosplenomegaly Musculoskeletal: No clubbing, Other (Dressing intact) Laboratory Data at Discharge: WBC 6.2 K/uL (4.3-10.9) 12/17/19 05:51 Hgb 12.1 g/dL (12.0-15.0) 12/17/19 05:51 Hct 35.6 % (36.0-45.0) L 12/17/19 05:51 Plt Count 213 K/uL (152-406) 12/17/19 05:51 PT 21.6 SECONDS (9.5-12.5) H 12/16/19 10:00 INR 1.85 12/16/19 10:00 Sodium 142 mmol/L (136-145) 12/17/19 05:51 Potassium 4.0 mmol/L (3.5-5.1) 12/17/19 05:51 BUN 16 mg/dL (7-18) 12/17/19 05:51 Creatinine 0.90 mg/dL (0.55-1.3) 12/17/19 05:51 Glucose 127 mg/dL (74-106) H 12/17/19 05:51 Phosphorus 2.8 mg/dL (2.5-4.9) 12/17/19 05:51 Magnesium 2.1 mg/dL (1.8-2.4) 12/17/19 05:51 Total Bilirubin 1.2 mg/dL (0.2-1.0) H 12/17/19 05:51 AST 153 U/L (15-37) H D 12/17/19 05:51 ALT 114 U/L (12-78) H 12/17/19 05:51 Alkaline Phosphatase 74 U/L (45-117) 12/17/19 05:51 Home Medications: Rivaroxaban [Xarelto] 20 mg PO BID 12/16/19 Dofetilide 500 mcg PO BID 12/17/19 Duloxetine [Cymbalta *] 60 mg PO DAILY 12/17/19 Fenofibrate,Micronized [Fenofibrate] 134 mg PO DAILY 12/17/19 Folic Acid 0.8 mg PO DAILY 12/17/19 Levothyroxine Sodium [Synthroid] 75 mcg PO DAILY 12/17/19 Mirabegron [Myrbetriq] 1 tab PO DAILY 12/17/19 Ondansetron HCl [Zofran] 4 mg PO Q8H PRN 12/17/19 Potassium Chloride [Micro-K] 10 meq PO DAILY 12/17/19 Vit C/E/Zn/Coppr/Lutein/Zeaxan [Preservision Areds 2 Softgel] 1 tab PO BID 12/17/19 bisoproloL fumarate [Zebeta*] 2.5 mg PO BID 12/17/19 Ibuprofen [Motrin] 600 mg PO Q6H PRN #20 tab 12/19/19 Ketorolac [Toradol] 10 mg FT Q6HR PRN 10 Days #20 tab 12/19/19 New Medications: Ibuprofen [Motrin] 600 mg PO Q6H PRN #20 tab PRN Reason: Pain Scale 5-7 (Moderate) Ketorolac [Toradol] 10 mg FT Q6HR PRN 10 Days #20 tab PRN Reason: Pain Scale 5-7 (Moderate) Diet: [facility] Followup: Kip Santiago MD [ACTIVE - CAN ADMIT] -
== END 2019-12-19 13:02 | DRG 493 ==
LOC: ER 09:34 → ERHOLD 13:09 → 2ND 16:39
PROVIDERS: ADMIT Family Medicine; ATTEND Family Medicine
PROC: 0QSH36Z Reposition Left Tibia with Intramedullary Internal Fixation Device, Percutaneous Approach (ICD-10-PCS; principal; 2019-12-17 09:00)
DX: S82.252A Displaced comminuted fracture of shaft of left tibia, initial encounter for closed fracture (principal); N39.0 Urinary tract infection, site not specified; I50.42 Chronic combined systolic (congestive) and diastolic (congestive) heart failure; I11.0 Hypertensive heart disease with heart failure; I48.91 Unspecified atrial fibrillation; B96.4 Proteus (mirabilis) (morganii) as the cause of diseases classified elsewhere; S82.452A Displaced comminuted fracture of shaft of left fibula, initial encounter for closed fracture; Z95.0 Presence of cardiac pacemaker; Z79.01 Long term (current) use of anticoagulants; Z88.8 Allergy status to other drugs, medicaments and biological substances; Z11.59 Encounter for screening for other viral diseases; Z88.5 Allergy status to narcotic agent; Z86.73 Personal history of transient ischemic attack (TIA), and cerebral infarction without residual deficits; Z90.49 Acquired absence of other specified parts of digestive tract; Z90.710 Acquired absence of both cervix and uterus; Z79.890 Hormone replacement therapy; Z79.899 Other long term (current) drug therapy; W18.00XA Striking against unspecified object with subsequent fall, initial encounter
CPT/HCPCS: 36415; 70450; 71045; 72125; 72170; 73700; 80048; 80053; 80076; 81003; 81015; 83735; 83880; 84100; 84484; 85025; 85610; 87077; 87086; 87088; 87186; 93005; 96374; 96375; 97110; 97112; 97116; 97161; 97530; 99285; G0390; J0690; J1100; J2270; J2370; J2405; J2704; J3010; J7120; U0002